=== PATIENT | male | born 1955 | race Two or more races ===

== ENCOUNTER 2021-01-19 20:45 | Emergency (ER) | payer BC ==
--- NOTE | 2021-01-19 20:56 | EDM.PDOC ---
ED HPI GENERAL MEDICAL PROBLEM - General Chief Complaint: Diabetic Complaint Stated Complaint: DIABETIC, TINGLING IN RT LEG AND TOES Source of Information: Reports: Patient History Limitations: Reports: No Limitations Departure - Discharge Information
--- NOTE | 2021-01-19 21:12 | EDM.PDOC ---
ED HPI GENERAL MEDICAL PROBLEM - General Chief Complaint: Diabetic Complaint Stated Complaint: DIABETIC, TINGLING IN RT LEG AND TOES Time Seen by Provider: 01/19/21 21:02 Source of Information: Reports: Patient, [employer] (Daughter by phone; states that they speak Indian), RN Notes Reviewed History Limitations: Reports: No Limitations - History of Present Illness INITIAL COMMENTS - FREE TEXT/NARRATIVE: Patient is a 65-year-old male of descent who presents to the ER for right leg pain. His daughter is present by phone, and does translate for this visit. The daughter relates that the patient has been having pain in his right leg for the past 2 days. He states that it did not seem to originate out of his back, but rather that it started at his distal foot and has worked its way up the leg. Does note that is worse with movement, and seem to be better at rest. Does have a history of diabetes, but he takes no medications. He does not usually check his blood sugars, but his blood sugar at today's visit is 180. States that it normally runs in the 140's. Patient denies any other sick-like symptoms, fever/chills, cough/shortness of breath, nausea/vomiting/diarrhea. Right Leg Pain Score (Numeric/FACES): 8 - Related Data Allergies Allergy/AdvReac Type Severity Reaction Status Date / Time Sulfa (Sulfonamide Allergy Severe Rash Verified 01/19/21 20:57 Antibiotics) Home Meds: Home Meds . [No Known Home Meds] 01/19/21 [History] Past Medical History HEENT History: Reports: Epistaxis Endocrine/Metabolic History: Reports: Diabetes, Type II Social & Family History - Tobacco Use Tobacco Use Status *Q: Never Tobacco User - Caffeine Use Caffeine Use: Reports: Soda - Recreational Drug Use Recreational Drug Use: No ED ROS GENERAL - Review of Systems Review Of Systems: Comprehensive ROS is negative, except as noted in HPI. ED EXAM GENERAL NO PERIP PULSE - Physical Exam Exam: See Below Exam Limited By: No Limitations General Appearance: Alert, WD/WN, No Apparent Distress Respiratory/Chest: No Respiratory Distress, Lungs Clear, Normal Breath Sounds, No Accessory Muscle Use, Chest Non-Tender Cardiovascular: Normal Peripheral Pulses, Regular Rate, Rhythm, No Edema GI/Abdominal: Normal Bowel Sounds, Soft, Non-Tender, No Organomegaly, No Distention, No Mass Extremities: Normal Inspection, Normal Range of Motion, Normal Capillary Refill, Other (R Wilber's sign positive) Neurological: Alert, Oriented, Normal Cognition, No Motor/Sensory Deficits Psychiatric: Normal Affect, Normal Mood Skin Exam: Warm, Dry, Intact, Normal Color, No Rash Course - Vital Signs Last Recorded V/S: Last Vital Signs Temp 96.8 F L 01/19/21 20:52 Pulse 63 01/19/21 20:52 Resp 16 01/19/21 20:52 BP 157/73 H 01/19/21 20:52 Pulse Ox 97 01/19/21 20:52 - Orders/Labs/Meds Orders: Active Orders 24 hr Category Date Time Status VL Duplex Lwr Ext Veins Ltd Rt [US] Stat Exams 01/19/21 21:08 Ordered Labs: Laboratory Tests 01/19/21 Range/Units 20:52 POC Glucose 188 H (70-99) mg/dL - Re-Assessments/Exams Free Text/Narrative Re-Assessment/Exam: 01/19/21 21:11 Patient presents to the ER for his right leg pain. For today's purposes we will go ahead and get ultrasound to rule out blood clot. 01/19/21 22:11 US demonstrates no sign of DVT. This is most likely musculoskeletal leg pain. Will discharge the patient with conservative recommendations for over the weekend and have him follow up with his provider next week to make sure that his symptoms are improving as expected. Departure - Departure Time of Disposition: 22:20 Disposition: Home, Self-Care 01 Condition: Good Clinical Impression: Right leg pain - Discharge Information *PRESCRIPTION DRUG MONITORING PROGRAM REVIEWED*: No *COPY OF PRESCRIPTION DRUG MONITORING REPORT IN PATIENT ABIGAIL: No Forms: ED Department Discharge Additional Instructions: You were evaluated in the ER today for your right leg pain. You had an Ultrasound done at today's visit that demonstrated no sign of a blood clot in your right leg. No laboratory testing was done at today's visit, but you should check your blood sugars at least twice a day to make sure they are staying manageable. Your leg pain may be due to diabetic nerve pain that can develop when people have Diabetes. There are medications that can be given for this; however it is not something we typically prescribe through the ER. It is more likely however that your leg pain is musculoskeletal in origin and will likely get better in a few day's time. You may use Tylenol 500mg Q6H PRN for your leg pain. If you do not have a primary care provider; I highly recommend that you obtain one. Our clinic number is [phone]. Please return to the ER at any time if your symptoms change or worsen. sang laat yaar hkyayhtout narkyinmhu aatwat sang koyanae ER twin aakellhpyat htarrsai . sang laat yaar hkyayhtout twin sway hkell hkyinn lakhkanar m pya s sany yanaehkayat laipaat mhutwin sangtwin Ultrasound pyulotehkaesai . yanaehkayat laipaat mhutwin jason sany dharathkwalhkaann hcamsautmhu m pyulotehkae par , shoetsaw innthoetsai hceman hkan hkwal ninehkyinn shimashi sayhkyaar hcayraan saineat sway s kyarr myarrko taitraatshin nhaitkyaain hcaitsayy sang symone . saineat hkyayhtout narkyinmhu symone seehkyaorawgar kyawwng hpyitsaw luumyarrsai seehkyaorawgar ashok sany aahkyanetwin hpyitpawnine symone . deaatwat payy nineparsai sayymyarr shiparsai; shoetsaw innsai ER mhataitsang ponemhaan aarr hpyang saatmhaathtarrsaw a rar mahotepar . [facility] sang hkyayhtout narkyinmhu k muurainn kyawatsarr kyawatsarr rawgar hpyitpyee taitnaetar aatwin pomo kaunggmwan larhpwalshi symone . saineat hkyayhtout narkyinmhuaatwat Tylenol 500mg Q6H PRN ko shai aasonepyunine symone . sang twin aadhik hcawng shout mhu payy suu patience oropeza . kyawanotethoeteat [facility] centerann nanparatmhar 7 0 1- 4 5 6- 4 2 0 0 hpyitsai . phuc ungermyarr pyaungglell lar coleman shoetmahote pomo doreen rwarr larpark ER shoet aahkyanemarway pyanswarr par . Sepsis Event Note (ED) - Evaluation Sepsis Screening Result: No Definite Risk - Focused Exam Vital Signs: Vital Signs Temp Pulse Resp BP Pulse Ox 01/19/21 20:52 96.8 F L 63 16 157/73 H 97 - My Orders Last 24 Hours: My Active Orders 01/19/21 21:08 VL Duplex Lwr Ext Veins Ltd Rt [US] Stat - Assessment/Plan Last 24 Hours: My Active Orders 01/19/21 21:08 VL Duplex Lwr Ext Veins Ltd Rt [US] Stat
--- NOTE | 2021-01-20 14:38 | US ---
Right lower extremity deep venous ultrasound: Duplex and color Doppler evaluation was obtained of the right common femoral, proximal greater saphenous, superficial femoral, popliteal, posterior tibial and peroneal veins. Left common femoral vein was also evaluated. Comparison: No prior venous imaging is available. Findings: Normal phasic flow, augmentation and compression is seen within the visualized veins. Impression: 1. No findings of deep venous thrombosis within the right lower extremity or within the left common femoral vein. Diagnostic code #1 I agree with preliminary report from [facility], finalized on 01/19/21, 11:07 PM CDT, code 1
== END 2021-01-19 22:35 | disposition home or self-care (01) ==
LOC: JD.ED 20:45
DX: M79.604 Pain in right leg (principal); E11.9 Type 2 diabetes mellitus without complications; Z88.2 Allergy status to sulfonamides
CPT/HCPCS: 82947; 93971-26-RT; 93971-RT; 99283; 99284-25